=== PATIENT | male | born 1935 | race Caucasian/White ===

== ENCOUNTER 2016-11-29 17:03 | Emergency (ER) | payer MEDICARE, BC ==
[~2016-11-29] VITALS: Ht 188 cm; Wt 90.7 kg
[2016-11-29 17:07] VITALS: BP 150/93
== END 2016-11-29 18:56 | disposition home or self-care (01) ==
LOC: ER 17:03
DX: R06.6 Hiccough (principal); I10 Essential (primary) hypertension
CPT/HCPCS: 96372; 99283; A4606; J3230; Z7610

== ENCOUNTER 2023-02-07 09:46 | Inpatient (IN) | payer MEDICARE, BC ==
[~2023-02-07] VITALS: Ht 188 cm; Wt 98.0 kg
--- NOTE | 2023-02-07 10:40 | NUR ---
RECEIVED PT 87YRS MALE FROM HOME c/o nuasea and vomiting and DIZZNESS AWAKE FALLOW COMMAND
--- NOTE | 2023-02-07 11:19 | NUR ---
CALLED CODE STROKE
--- NOTE | 2023-02-07 11:23 | NUR ---
COMPUTER PROGRAMMER ANALYST AT BEDSIDE
--- NOTE | 2023-02-07 11:24 | NUR ---
PHARMACIST AT BEDSIDE
--- NOTE | 2023-02-07 11:24 | NUR ---
CALLED [facility] [phone] ALYCIA MAHAN.
--- NOTE | 2023-02-07 11:25 | NUR ---
TAKEN TO CT VIA ADRIANA
[2023-02-07] MEDS ORDERED: IOHEXOL-350 100 ML VIAL IV ONE (11:30)
[2023-02-07] MEDS ORDERED: CT SWABBABLE VALVE TRANS SET 1 EA INFUS.SET MC ONE (11:30)
[2023-02-07] MEDS ORDERED: IV NS 0.9% 1,000 ML BAG IV ONE (11:30)
[2023-02-07] MEDS ORDERED: ONDANSETRON HCL/PF 4 MG/2 ML VIAL IVP ONE (11:30)
[2023-02-07] MEDS ORDERED: IV NS 0.9% 250 ML IV ONE (11:30)
[2023-02-07] MEDS ORDERED: MECLIZINE HCL 12.5 MG TABLET PO ONE (11:30)
[2023-02-07] MEDS ORDERED: ONDANSETRON HCL/PF 4 MG/2 ML VIAL ONE (11:33)
[2023-02-07] MEDS ORDERED: MECLIZINE HCL 25 MG TABLET ONE (11:33)
[2023-02-07 11:35] LABS: BASOPHILS % (AUTO) 0.4 % (0.0-2.0); CALCIUM, SERUM 9.6 mg/dL (8.5-10.1); CARBON DIOXIDE 28 mmol/L (21-32); CHLORIDE 99 mmol/L (98-107); CREATININE 1.6 mg/dL (0.6-1.3); EOSINOPHILS % (AUTO) 0.2 % (0.0-6.0); GLUCOSE 204 mg/dL (74-106); HEMATOCRIT 49 % (39-51); HEMOGLOBIN 16.2 g/dL (13.5-17.5); LYMPHOCYTES # (AUTO) 0.8 K/uL (0.8-4.8); LYMPHOCYTES % (AUTO) 6.1 % (20.0-44.0); MEAN CORPUSCULAR HGB CONC 33 g/dl (31.0-36.0); MEAN CORPUSCULAR VOLUME 91 fL (80-96); MONOCYTES # (AUTO) 1.1 K/uL (0.1-1.30); MONOCYTES % (AUTO) 8.4 % (2.0-12.0); NEUTROPHILS # (AUTO) 11.6 K/uL (1.8-8.9); NEUTROPHILS % (AUTO) 84.9 % (43.0-81.0); PLATELET COUNT (AUTO) 201 K/uL (150-450); POTASSIUM 3.2 mmol/L (3.5-5.1); RED BLOOD CELL COUNT(AUTO) 5.44 MIL/uL (4.5-6.0); SODIUM SERUM 141 mmol/L (136-145); UREA NITROGEN, BLOOD 19 mg/dL (7-18); WHITE BLOOD COUNT (AUTO) 13.6 K/uL (4.3-11.0)
[2023-02-07 11:41] LABS: ALANINE AMINOTRANSFERASE 40 U/L (12-78); ALKALINE PHOSPHATASE 61 U/L (46-116); ASPARTATE AMINOTRANSFERASE 37 U/L (15-37); BILIRUBIN,DIRECT 0.3 mg/dL (0.0-0.2); BILIRUBIN,TOTAL 0.9 mg/dL (0.2-1.0); LIPASE 72 U/L (73-393); TOTAL PROTEIN, SERUM 7.9 g/dL (6.4-8.2)
--- NOTE | 2023-02-07 11:47 | NUR ---
COVID SWAB TAKEN SENT TO LAB
--- NOTE | 2023-02-07 11:55 | NUR ---
MOVE SHEET SUBMITTED.
[2023-02-07] MEDS ORDERED: hydrALAZINE HCL IV 20 MG VIAL IV ONE (12:30)
[2023-02-07] MEDS ORDERED: METO100T7 PO (12:44)
[2023-02-07] MEDS ORDERED: TORS20TA3 PO (12:44)
[2023-02-07] MEDS ORDERED: TADA5TAB2 PO (12:44)
[2023-02-07] MEDS ORDERED: ATOR40TA PO (12:44)
[2023-02-07] MEDS ORDERED: FENO145T PO (12:44)
[2023-02-07] MEDS ORDERED: TAMS-12 PO (12:44)
[2023-02-07] MEDS ORDERED: MELA5TAB PO (12:44)
[2023-02-07] MEDS ORDERED: LEVO100T9 PO (12:44)
[2023-02-07] MEDS ORDERED: ASPI-992 PO (12:44)
[2023-02-07] MEDS ORDERED: EZET10TA16 PO (12:44)
[2023-02-07] MEDS ORDERED: CHOL100043 PO (12:44)
[2023-02-07] MEDS ORDERED: RIBO100T6 PO (12:46)
--- NOTE | 2023-02-07 12:47 | NUR ---
BED 114-1
--- NOTE | 2023-02-07 12:50 | NUR ---
[facility] PAGED. AWAITING HOSPITALIST CALL BACK.
[2023-02-07] MEDS ORDERED: hydrALAZINE HCL IV 20 MG VIAL ONE (13:05)
--- NOTE | 2023-02-07 13:30 | NUR ---
HAND OFF DAMIER. Shannan KNOWLES TO ROOM 114-1 VIA CHRISTINE WITH REJI
--- NOTE | 2023-02-07 13:40 | NUR ---
RECEIVED PATIENT FROM ER. ALERT AND ORIENTED TIMES 4 BUT DIFFICULT TO DIRECT. ATTACHED TO TELE MONITOR. BREATHING EVENLY AND UNLABORED. PATIENT REQUESTED URINAL AND BED FUNES AND TO "BE LEFT ALONE" TO USE THE RESTROOM. SKIN INTACT. BED ZEROED, BED ALARM ON DUE TO PATIENT REPORT OF DIZZINESS. PATIENT REFUSING VITALS SIGNS CHECK AT THIS TIME. WILL MOVE WORKSTATION CLOSE TO PATIENTS ROOM TO ENSURE SAFETY.
--- NOTE | 2023-02-07 14:08 | NUR ---
CONDOM CATHETER ATTACHED.
--- NOTE | 2023-02-07 14:16 | NUR ---
PATIENT CONSENTED TO VITALS SIGNS CHECK. VITALS ARE FOLLOWS: TEMP-98.0 PULSE- 98 RR-20 O2%- 100 ON ROOM AIR BP 189/111 PAIN- Addendum: 02/07/23 at 1445 by ROBBI WAN RN DR HADLEY NOTIFIED OF BLOOD PRESSURE, AWAITING ORDERS.
[2023-02-07] MEDS: hydrALAZINE HCL IV 20 MG VIAL IV PRN ×2 (14:58→20:07)
[2023-02-07] MEDS ORDERED: CLONIDINE HCL 0.1 MG TABLET PO PRN (15:00)
[2023-02-07] MEDS ORDERED: POTASSIUM CHLORIDE 20 MEQ TAB.PRT.SR PO ONE (15:00)
--- NOTE | 2023-02-07 15:05 | NUR ---
RN NOTE BP 189/111, HR 98, PT ON TELE MONITOR. HYDRALAZINE IVP PRN GIVEN.
[2023-02-07] MEDS: IV NS 0.9% 250 ML IV PRN (15:50)
[2023-02-07] MEDS: POTASSIUM CL. PREMIX PERIPHER. 50 ML IV SCH ×2 (15:50→17:00)
[2023-02-07 16:00] VITALS: BP 139/70
[2023-02-07] MEDS ORDERED: ONDANSETRON HCL/PF 4 MG/2 ML VIAL IV PRN (16:00)
[2023-02-07] MEDS: ENOXAPARIN SODIUM 100 MG/ML DISP.SYRIN SQ SCH ×2 (16:00→17:01)
[2023-02-07 17:01] LABS: BASOPHILS % (AUTO) 0.1 % (0.0-2.0); HEMATOCRIT 52 % (39-51); HEMOGLOBIN 16.9 g/dL (13.5-17.5); LYMPHOCYTES # (AUTO) 0.4 K/uL (0.8-4.8); MEAN CORPUSCULAR HGB CONC 33 g/dl (31.0-36.0); MEAN CORPUSCULAR VOLUME 91 fL (80-96); MONOCYTES # (AUTO) 1.1 K/uL (0.1-1.30); MONOCYTES % (AUTO) 5.2 % (2.0-12.0); NEUTROPHILS # (AUTO) 20.1 K/uL (1.8-8.9); NEUTROPHILS % (AUTO) 92.7 % (43.0-81.0); PLATELET COUNT (AUTO) 206 K/uL (150-450); RED BLOOD CELL COUNT(AUTO) 5.71 MIL/uL (4.5-6.0); WHITE BLOOD COUNT (AUTO) 21.6 K/uL (4.3-11.0)
[2023-02-07] MEDS: BLOOD SUGAR DIAGNOSTIC 1 EACH STRIP IN SCH ×2 (17:01→22:08)
[2023-02-07] MEDS: TAMSULOSIN 0.4 MG CAP.SR.24H PO SCH (17:02)
--- NOTE | 2023-02-07 17:07 | NUR ---
LOVENOX HELD DUE TO HEMATURIA
[2023-02-07 17:16] LABS: CALCIUM, SERUM 9.5 mg/dL (8.5-10.1); CARBON DIOXIDE 27 mmol/L (21-32); CHLORIDE 100 mmol/L (98-107); CREATININE 1.5 mg/dL (0.6-1.3); GLUCOSE 174 mg/dL (74-106); POTASSIUM 3.2 mmol/L (3.5-5.1); SODIUM SERUM 142 mmol/L (136-145); UREA NITROGEN, BLOOD 18 mg/dL (7-18)
[2023-02-07 17:31] LABS: CHOLESTEROL 160 mg/dL (<200); HDL CHOLESTEROL 74 mg/dL (40-60); LDL 83 mg/dL (0-99); THYROID STIMULATING HORMONE 5.896 uIU/mL (0.358-3.74); TRIGLYCERIDES 62 mg/dL (30-150)
[2023-02-07 17:33] LABS: ALANINE AMINOTRANSFERASE 39 U/L (12-78); ALBUMIN 3.9 g/dL (3.4-5.0); ALKALINE PHOSPHATASE 61 U/L (46-116); ASPARTATE AMINOTRANSFERASE 39 U/L (15-37)
[2023-02-07 17:54] LABS: COLOR,URINE ORANGE (YELLOW)
[2023-02-07] MEDS ORDERED: BLOOD SUGAR DIAGNOSTIC 1 EACH STRIP IN SCH (18:00)
[2023-02-07 18:01] LABS: RBC,URINE TOO NUMEROUS TO COUN /HPF (0-2)
[2023-02-07 18:02] LABS: BACTERIA,URINE None seen /HPF (None Seen); SQUAMOUS EPITHELIAL CELL,UR 0-2 /HPF (None Seen); WBC,URINE 0-2 /HPF (0-3)
[2023-02-07 18:04] LABS: BAND % (MANUAL) 6 % (0.0-5.0); LYMPHOCYTES % (MANUAL) 4 % (16-48); MONOCYTES % (MANUAL) 4 % (0-11.0); NEUTROPHILS % (MANUAL) 86 (42-76)
--- NOTE | 2023-02-07 18:42 | NUR ---
PATIENT REMAINS IN ROOM ALERT AND ORIENTED TIMES 4 BUT DIFFICULT TO DIRECT. ATTACHED TO TELE MONITOR, READING A-FIB. BREATHING EVENLY AND UNLABORED ON ROOM AIR. WEARING DIAPER. NO MARTINEZ CATHETER STARTED DUE TO HEMATURIA. SKIN INTACT. BED ALARM ON DUE TO PATIENT REPORT OF DIZZINESS. PATIENTS AT THE BEDSIDE. SAFETY MEASURES IMPLEMENTED, WILL ENDORSE TO NIGHTSHIFT RN FOR CONTINUATION OF CARE.
--- NOTE | 2023-02-07 19:30 | NUR ---
RN NOTES RECEIVED REPORT FROM MORNING SHIFT. PATIENT IN BED AT BEDSIDE A/O X3. WITH IV ACCESS AT RAC # 20 PATENT FLUSHES WELL. ON ROOM AIR SATING 95% NO SOB NO DESATURATION NOTED BREATHING EVEN AND UNLABORED. ON MEDICAL ADMINISTRATIVE WITH AFIB UNCONTROLLED. WILL CLOSELY MONITOR THE PATIENT
[2023-02-07 20:00] VITALS: BP 129/78
--- NOTE | 2023-02-07 23:10 | NUR ---
RN NOTES PATIENT NOTED WITH AFIB UNCONTROLLED RHYTHM 130'S DR ZAMUDIO INFORMED AND CHECK PATIENT WITH ORDER TO GIVE METOPROLOL 5 MG IV X1. STARTED IV HYDRATION 09/29 @ 75CC/HR PER PT'S REQUEST.
[2023-02-07] MEDS ORDERED: METOPROLOL TARTRATE INJ 5 MG/5 ML AMPUL IVP PRN (23:30)
[2023-02-07] MEDS ORDERED: IV 1/2NS 1000 ML 1,000 ML IV PRN (23:30)
[2023-02-08] VITALS (10 sets, daily range): BP systolic 93–170; BP diastolic 66–85
[2023-02-08] MEDS: ENOXAPARIN SODIUM 100 MG/ML DISP.SYRIN SQ SCH (04:00)
--- NOTE | 2023-02-08 04:00 | NUR ---
RN NOTES LOVENOX HELD DUE TO BLOODY URINE OUTPUT.
[2023-02-08 06:01] LABS: BASOPHILS % (AUTO) 0.2 % (0.0-2.0); HEMATOCRIT 48 % (39-51); HEMOGLOBIN 15.9 g/dL (13.5-17.5); LYMPHOCYTES # (AUTO) 0.7 K/uL (0.8-4.8); LYMPHOCYTES % (AUTO) 3.9 % (20.0-44.0); MEAN CORPUSCULAR HGB CONC 33 g/dl (31.0-36.0); MEAN CORPUSCULAR VOLUME 89 fL (80-96); MONOCYTES # (AUTO) 1.3 K/uL (0.1-1.30); MONOCYTES % (AUTO) 7.6 % (2.0-12.0); NEUTROPHILS # (AUTO) 15.6 K/uL (1.8-8.9); NEUTROPHILS % (AUTO) 88.3 % (43.0-81.0); PLATELET COUNT (AUTO) 195 K/uL (150-450); WHITE BLOOD COUNT (AUTO) 17.7 K/uL (4.3-11.0)
[2023-02-08] MEDS: hydrALAZINE HCL IV 20 MG VIAL IV PRN ×2 (06:07→16:19)
[2023-02-08 06:23] LABS: CALCIUM, SERUM 9.1 mg/dL (8.5-10.1); CARBON DIOXIDE 23 mmol/L (21-32); CHLORIDE 102 mmol/L (98-107); CREATININE 1.7 mg/dL (0.6-1.3); GLUCOSE 162 mg/dL (74-106); POTASSIUM 3.3 mmol/L (3.5-5.1); SODIUM SERUM 140 mmol/L (136-145); UREA NITROGEN, BLOOD 23 mg/dL (7-18)
[2023-02-08 06:41] LABS: CHOLESTEROL 155 mg/dL (<200); HDL CHOLESTEROL 77 mg/dL (40-60); LDL 75 mg/dL (0-99); TRIGLYCERIDES 48 mg/dL (30-150)
--- NOTE | 2023-02-08 06:55 | NUR ---
RN NOTES PATIENT HAS AN EPISODE OF ELEVATED BLOOD PRESSURE. IV ACCESS AT R AC RUNNING 1/2 NS @ 75CC/HR. STILL WITH PINKISH URINE OUTPUT. PRN BP MEDS GIVEN. ALL DUE MEDS GIVEN. WILL ENDORSED TO MORNING SHIFT FOR JANETTE
--- NOTE | 2023-02-08 07:27 | NUR ---
TILTING HEAD BAND SAWYER OPENING NOTES RECEIVED PT RESTING IN BED, AT BEDSIDE. A/O X 4, ABLE TO MAKE NEEDS KNOWN. STILL C/O DIZZINESS. ON ROOM AIR, TOLERATING WELL. ON TELE MONITOR WITH CURRENT READING AFIB UNCONTROLLED. IV ACCESS IN RAC #18G, SL. SAFETY PRECAUTION IMPLEMENTED: BED LOCKED AND IN LOWEST POSITION, SIDE RAILS UP X 3, CALL LIGHT AND TRAY TABLE WITHIN EASY REACH. WILL CONTINUE TO MONITOR.
[2023-02-08] MEDS: LEVOTHYROXINE SODIUM 100 MCG TABLET PO SCH (07:36)
[2023-02-08] MEDS: BLOOD SUGAR DIAGNOSTIC 1 EACH STRIP IN SCH ×4 (08:17→22:11)
[2023-02-08] MEDS ORDERED: METOPROLOL SUCCINATE 50 MG TAB.SR.24H PO SCH (09:00)
[2023-02-08] MEDS: ATORVASTATIN 10 MG TABLET PO SCH (09:29)
[2023-02-08] MEDS: DILTIAZEM HCL CD 240 MG PO SCH (09:29)
[2023-02-08] MEDS: ASPIRIN 325 MG TABLET PO SCH (09:29)
[2023-02-08 09:40] LABS: THYROID STIMULATING HORMONE 6.144 uIU/mL (0.358-3.74)
[2023-02-08] MEDS: IV 1/2NS 1000 ML 1,000 ML IV SCH ×2 (09:54→23:08)
[2023-02-08] MEDS ORDERED: POTASSIUM CHLORIDE 10 MEQ TABLET.SA PO ONE (10:30)
[2023-02-08] MEDS: CLOPIDOGREL BISULFATE 75 MG TABLET PO SCH (12:27)
[2023-02-08] MEDS ORDERED: Z GUARD REMEDY 4 OZ OINT TP PRN (13:00)
--- NOTE | 2023-02-08 17:38 | NUR ---
telemarketing sales representative note per dr juan carlos waters to order Tylenol
[2023-02-08] MEDS: TAMSULOSIN 0.4 MG CAP.SR.24H PO SCH (17:48)
[2023-02-08] MEDS ORDERED: ACETAMINOPHEN 325 MG TABLET PO PRN (18:00)
--- NOTE | 2023-02-08 18:02 | NUR ---
telecom billing analyst note per dr rangel ok to transfer to icu for closer observation ,blood culture ordered by dr rangel ,order carried out
--- NOTE | 2023-02-08 18:20 | NUR ---
PT ARRIVED IN ICU TO ROOM 260. PT ALERT OX3, AT BEDSIDE. NO NEURO DEFICITS NOTED AT THIS TIME. BILAT ARMS AND LEGS EQUALLY STRONG, SPEECH CLEAR WITHOUT SLURRING, NO FACIAL DROOP NOTED. PT IS CHRONIC A-FIB, IRREGULAR RHYTHM WITH PACEMAKER AND "WATCHMAN" TYPE OF DEVICE PER . PT SETTLED IN ROOM. PT DENIES NEEDS AT THIS TIME.
--- NOTE | 2023-02-08 18:29 | NUR ---
LOCATION MAN NOTES PATIENT TRANSFERRED TO ICU AT 183 ACCOMPANIED BY . A/O X 4, ABLE TO MAKE NEEDS KNOWN. STILL C/O DIZZINESS. ON ROOM AIR, TOLERATING WELL. ON TELE MONITOR WITH CURRENT READING AFIB UNCONTROLLED. IV ACCESS IN RAC #18G, SL. SAFETY PRECAUTION IMPLEMENTED: BED LOCKED AND IN LOWEST POSITION,SIDE RAILS UP X 3, CALL LIGHT AND TRAY TABLE WITHIN EASY REACH. WILL CONTINUE TO MONITOR. Addendum: 02/08/23 at 1839 by Jessica Melendez RN ERROR, PLEASE DISREGARDS
--- NOTE | 2023-02-08 18:39 | NUR ---
STEAM CONDITIONER OPERATOR NOTES PATIENT TRANSFERRED TO ICU AT 1835 ACCOMPANIED BY AND RN. A/O X 4, ABLE TO MAKE NEEDS KNOWN. STILL C/O DIZZINESS. ON ROOM AIR, TOLERATING WELL. ON TELE MONITOR WITH CURRENT READING AFIB UNCONTROLLED. IV ACCESS IN RAC #18G WITH ONGOING 1/2 NS AT 75ML/HR, INFUSING WELL. NEEDS ATTENDED. ALL MEDS GIVEN. MD AND CHARGE NURSE AWARE OF TRANSFER.
[2023-02-08] MEDS ORDERED: VANCOMYCIN 1.5 GM in IV D5W 500ml IV ONE (19:00)
[2023-02-08] MEDS: CEFEPIME 2 GM in IV D5W 100 ML IV SCH (19:29)
--- NOTE | 2023-02-08 19:50 | NUR ---
DRIVER/GUIDE OPENING NOTES RECEIVED PATIENT IN BED, AWAKE, ALERT/ORIENTED X 4 AND VERBALLY RESPONSIVE. ABLE TO MAKE NEEDS. ON ROOM AIR AND PT TOLERATING WELL. TELE MONITOR READING AFIB UNCONTROLLED. IV ACCESS IN RAC #18G INTACT AND PATENT. NO S/S OF INFILTRATIONS. RUNNING 1/2 NS AT 75ML/HR. MAXIPIME GIVEN. NO C/O PAIN OR DISCOMFORT. NO ACUTE DISTRESS. INCONTINENT ON BOWEL AND BLADDER. ALL SAFETY MEASURES IN PLACE. BED IN LOWEST POSITION AND LOCKED. SIDE RAILS UP X 2, PLACE CALL LIGHT WITH IN REACH. WILL CONTINUE TO MONITOR
--- NOTE | 2023-02-08 22:57 | NUR ---
RN NOTES: NOTIFIED PRIVATE SECTOR EXECUTIVE LIZZ HEATH REGARDING PT'S BLOOD SUGAR 178. NO COVERAGE PRESCRIBED. ORDER TO MONITOR.
[2023-02-09] VITALS (24 sets, daily range): BP systolic 105–159; BP diastolic 61–94
[2023-02-09 05:08] LABS: BASOPHILS # (AUTO) 0.1 K/uL (0.0-0.2); BASOPHILS % (AUTO) 0.4 % (0.0-2.0); EOSINOPHILS % (AUTO) 0.1 % (0.0-6.0); HEMATOCRIT 48 % (39-51); HEMOGLOBIN 15.5 g/dL (13.5-17.5); LYMPHOCYTES # (AUTO) 0.6 K/uL (0.8-4.8); LYMPHOCYTES % (AUTO) 3.5 % (20.0-44.0); MEAN CORPUSCULAR HGB CONC 32 g/dl (31.0-36.0); MEAN CORPUSCULAR VOLUME 92 fL (80-96); MONOCYTES # (AUTO) 1.7 K/uL (0.1-1.30); MONOCYTES % (AUTO) 10.3 % (2.0-12.0); NEUTROPHILS # (AUTO) 14.4 K/uL (1.8-8.9); NEUTROPHILS % (AUTO) 85.7 % (43.0-81.0); PLATELET COUNT (AUTO) 184 K/uL (150-450); RED BLOOD CELL COUNT(AUTO) 5.18 MIL/uL (4.5-6.0); WHITE BLOOD COUNT (AUTO) 16.8 K/uL (4.3-11.0)
[2023-02-09 05:27] LABS: ALANINE AMINOTRANSFERASE 36 U/L (12-78); ALBUMIN 3.4 g/dL (3.4-5.0); ALKALINE PHOSPHATASE 53 U/L (46-116); ASPARTATE AMINOTRANSFERASE 40 U/L (15-37); BILIRUBIN,TOTAL 1.1 mg/dL (0.2-1.0); CARBON DIOXIDE 24 mmol/L (21-32); CHLORIDE 102 mmol/L (98-107); GLUCOSE 145 mg/dL (74-106); MAGNESIUM 2.1 mg/dL (1.8-2.4); PHOSPHORUS 3.2 mg/dL (2.5-4.9); POTASSIUM 3.4 mmol/L (3.5-5.1); SODIUM SERUM 139 mmol/L (136-145); TOTAL PROTEIN, SERUM 6.9 g/dL (6.4-8.2); UREA NITROGEN, BLOOD 34 mg/dL (7-18)
--- NOTE | 2023-02-09 06:27 | NUR ---
COOKIE MIXER HELPER CLOSING NOTES PATIENT IN BED, AWAKE, ALERT/ORIENTED X 4 AND VERBALLY RESPONSIVE. ABLE TO MAKE NEEDS KNOWN. AT BEDSIDE. ON ROOM AIR AND PT TOLERATING WELL. O2 SAT 98%. TELE MONITOR READING AFIB UNCONTROLLED. IV ACCESS IN RAC #18G INTACT AND PATENT. NO S/S OF INFILTRATIONS. RUNNING 1/2 NS AT 75ML/HR. NO C/O PAIN OR DISCOMFORT. NO ACUTE DISTRESS. INCONTINENT ON BOWEL AND BLADDER. CHANGED 3X. NOTED HEMATURIA. ALL DUE MEDS GIVEN ORDERED. ALL SAFETY MEASURES IN PLACE. BED IN LOWEST POSITION AND LOCKED. SIDE RAILS UP X 2, PLACE CALL LIGHT WITH IN REACH. WILL ENDORSE TO MORNING SHIFT NURSE.
--- NOTE | 2023-02-09 07:30 | NUR ---
ICU/RN PT IS RESTING .ON ROOM AIR SAT O2-96%.V/S STABLE,AFEBRILE .NO PAIN REPORTED AT THIS TIME.A-FIB ON MONITOR.HR-115 BPM.IV INFUSING ORDERED.PT HAS DIAPER WITH BLOODY URINE.ABDOMEN DISTENDED.LABS REVIEW.K-3.4. NOTIFIED.NEW ORDERS RECEIVED. AT BED SIDE.
[2023-02-09] MEDS: LEVOTHYROXINE SODIUM 100 MCG TABLET PO SCH (08:17)
[2023-02-09] MEDS: BLOOD SUGAR DIAGNOSTIC 1 EACH STRIP IN SCH ×4 (08:17→21:37)
[2023-02-09] MEDS: DILTIAZEM HCL CD 240 MG PO SCH (08:32)
[2023-02-09] MEDS: POTASSIUM CHLORIDE 20 MEQ TAB.PRT.SR PO SCH ×3 (08:32→11:21)
[2023-02-09] MEDS: ATORVASTATIN 10 MG TABLET PO SCH (08:32)
[2023-02-09] MEDS: ASPIRIN 325 MG TABLET PO SCH ×2 (08:33→09:00)
[2023-02-09] MEDS: CLOPIDOGREL BISULFATE 75 MG TABLET PO SCH ×2 (08:33→09:00)
[2023-02-09] MEDS: METOPROLOL SUCCINATE 50 MG TAB.SR.24H PO SCH (08:33)
--- NOTE | 2023-02-09 09:00 | NUR ---
ICU/RN DUE MEDS ARE GIVEN ORDERED.ASPIRIN AND PLAVIX HOLD.PT HAS BLOODY URINE.ULTRASOUND SHOWS 800 ML IN THE BLADDER.MD NOTIFIED.F/C INSERTED ORDERED. 900 ML OF BLOODY URINE OUTPUT. CONTINUE MONITORING.
[2023-02-09] MEDS: IV 1/2NS 1000 ML 1,000 ML IV PRN (10:16)
--- NOTE | 2023-02-09 12:45 | NUR ---
ICU/RN CT OF THE HEAD DONE ORDERED.
[2023-02-09] MEDS: VANCOMYCIN 0.75 GM in IV D5W 250 ML IV SCH (12:49)
[2023-02-09] MEDS: TAMSULOSIN 0.4 MG CAP.SR.24H PO SCH (17:09)
[2023-02-09] MEDS: CEFEPIME 2 GM in IV D5W 100 ML IV SCH (18:09)
--- NOTE | 2023-02-09 18:46 | NUR ---
ICU/RN PM CARE PROVIDED.DUE MEDS ARE GIVEN ORDERED.V/S STABLE,AFEBRILE.NO PAIN REPORTED AT THIS TIME.PT STILL HAVE BLOODY URINE WITH BLOOD CLOTH.MD AWARE WAITING FOR UROLOGIST. AT BEDSIDE.CONTINUE MONITORING.
[2023-02-09] MEDS ORDERED: VANCOMYCIN 1.25 GM in IV D5W 250 ML IV SCH (19:00)
--- NOTE | 2023-02-09 19:30 | NUR ---
DEBURRING MACHINE OPERATOR OPENING NOTE RECEIVED PT IN BED, SLEEPING. ON BED SIDE. CURRENTLY ON ROOM AIR, TOLERATING WELL, SATING @ 97%. NO S/SX OF ACUTE RESPI DISTRESS NOTED AT THIS TIME. NO SOB. BREATHING IS EVEN AND UNLABORED. HOME DEPOT REP READS AFIB CONTROLLED WITH HR IN 80s. IV ACCESS ON RAC #18g, PATENT, INTACT AND FLUSHING WELL, INFUSING 1/2 NS @ 75 CC/HR. F/C DRAINING BLOODY URINE BY GRAVITY, MD AWARE. ALL SAFETY MEASURES IN PLACE: BED LOCKED IN LOW POSITION. BED ALARM ON. SR UP X2. CALL LIGHT WITHIN REACH. WILL CONTINUE TO MONITOR PT.
--- NOTE | 2023-02-09 23:25 | NUR ---
RN NOTE JOHN PAUL MIDLINE INSERTION DONE BY JOHN ZAMUDIO.
[2023-02-10] VITALS (21 sets, daily range): BP systolic 107–160; BP diastolic 11–100
[2023-02-10] MEDS: IV 1/2NS 1000 ML 1,000 ML IV PRN (01:22)
--- NOTE | 2023-02-10 01:30 | NUR ---
RN NOTE RAC ACCESS REMOVED DUE TO INFILTRATION.
[2023-02-10 04:55] LABS: BASOPHILS % (AUTO) 0.2 % (0.0-2.0); EOSINOPHILS % (AUTO) 0.3 % (0.0-6.0); HEMATOCRIT 43 % (39-51); LYMPHOCYTES # (AUTO) 0.8 K/uL (0.8-4.8); LYMPHOCYTES % (AUTO) 5.1 % (20.0-44.0); MEAN CORPUSCULAR HGB CONC 33 g/dl (31.0-36.0); MEAN CORPUSCULAR VOLUME 91 fL (80-96); MONOCYTES # (AUTO) 1.6 K/uL (0.1-1.30); MONOCYTES % (AUTO) 10.4 % (2.0-12.0); PLATELET COUNT (AUTO) 184 K/uL (150-450); RED BLOOD CELL COUNT(AUTO) 4.71 MIL/uL (4.5-6.0); WHITE BLOOD COUNT (AUTO) 15.5 K/uL (4.3-11.0)
[2023-02-10 05:12] LABS: ALANINE AMINOTRANSFERASE 39 U/L (12-78); ALBUMIN 2.9 g/dL (3.4-5.0); ALKALINE PHOSPHATASE 54 U/L (46-116); ASPARTATE AMINOTRANSFERASE 46 U/L (15-37); BILIRUBIN,TOTAL 1.2 mg/dL (0.2-1.0); CALCIUM, SERUM 8.8 mg/dL (8.5-10.1); CARBON DIOXIDE 26 mmol/L (21-32); CHLORIDE 104 mmol/L (98-107); CREATININE 1.3 mg/dL (0.6-1.3); GLUCOSE 138 mg/dL (74-106); MAGNESIUM 2.1 mg/dL (1.8-2.4); PHOSPHORUS 2.4 mg/dL (2.5-4.9); POTASSIUM 3.9 mmol/L (3.5-5.1); SODIUM SERUM 137 mmol/L (136-145); TOTAL PROTEIN, SERUM 6.2 g/dL (6.4-8.2); UREA NITROGEN, BLOOD 25 mg/dL (7-18)
--- NOTE | 2023-02-10 05:27 | NUR ---
RN NOTE RECEIVED CRITICAL LAB RESULT OF TROPONIN - 1968. AIR EXPORT LOGISTICS MANAGER IVANA ZAMUDIO MADE AWARE. NO ADDITIONAL ORDERS GIVEN AT THIS TIME.
[2023-02-10] MEDS: VANCOMYCIN 0.75 GM in IV D5W 250 ML IV SCH ×2 (06:04→18:41)
--- NOTE | 2023-02-10 07:00 | NUR ---
LAVENDER FARM WORKER CLOSING NOTE PT REMAINED STABLE T/O THE NIGHT. VS STABLE. ALL DUE MEDS GIVEN. NEEDS MET. PM CARE DONE. TURNED AND REPOSITIONED. WILL ENDORSE TO AM SHIFT NURSE FOR JANETTE.
--- NOTE | 2023-02-10 07:00 | NUR ---
RECEIVED REPORT FROM NIGHTSALFT ELENI REYES. PATIENT REMAINS IN ROOM ALERT AND ORIENTED TIMES 4, AND CRANKY. A-FIB CONTROLLED ON THE MONITOR. MARTINEZ CATHETER IN PLACE, DRAINING OUTPUT. SKIN INTACT. IV ACCESS MAINTAINED ON RIGHT UPPER ARM MIDLINE, INFUSING FLUIDS ORDERED. SAFETY MEASURES IMPLEMENTED, PATIENTS IS AT THE BEDSIDE. WILL CONTINUE PLAN OF CARE AND ANTICIPATE NEEDS.
[2023-02-10] MEDS: hydrALAZINE HCL IV 20 MG VIAL IV PRN (07:05)
[2023-02-10] MEDS: BLOOD SUGAR DIAGNOSTIC 1 EACH STRIP IN SCH ×4 (07:33→21:34)
[2023-02-10] MEDS: LEVOTHYROXINE SODIUM 100 MCG TABLET PO SCH (08:17)
[2023-02-10] MEDS: METOPROLOL SUCCINATE 50 MG TAB.SR.24H PO SCH (08:18)
[2023-02-10] MEDS: DILTIAZEM HCL CD 240 MG PO SCH (08:18)
[2023-02-10] MEDS: ASPIRIN 325 MG TABLET PO SCH (08:18)
[2023-02-10] MEDS: ATORVASTATIN 10 MG TABLET PO SCH (08:19)
[2023-02-10] MEDS: CLOPIDOGREL BISULFATE 75 MG TABLET PO SCH (08:19)
[2023-02-10] MEDS ORDERED: K PHOS NEUTRAL 250 MG TABLET PO ONE (16:00)
[2023-02-10] MEDS: TAMSULOSIN 0.4 MG CAP.SR.24H PO SCH (17:17)
[2023-02-10] MEDS: CEFEPIME 2 GM in IV D5W 100 ML IV SCH (18:11)
[2023-02-10] MEDS: IV NS 0.9% 250 ML IV PRN (18:41)
--- NOTE | 2023-02-10 19:19 | NUR ---
HAND OFF REPORT GIVEN TO JHOAN FOR CONTINUATION OF CARE.
--- NOTE | 2023-02-10 20:00 | NUR ---
Received patient resting AAOX4.Neuro status stable.VS stable.Afib controlled.On RA saturation wnl. FC to gravity.Denies any discomfort. at bedside.Patient for transfer to higher level of care.
[2023-02-11] VITALS (22 sets, daily range): BP systolic 127–163; BP diastolic 63–100
--- NOTE | 2023-02-11 00:05 | NUR ---
Received call from [facility],talked to Jovany.Updated of patient status.credit office manager Chris is following up with patient case. Per Jovany its still under review.
--- NOTE | 2023-02-11 01:10 | NUR ---
Received call form Annalyn at [facility].Per Annalyn they need to know the Specific Watchman device and the belly packer.and to call them when available tel# [phone].
[2023-02-11 05:42] LABS: BASOPHILS # (AUTO) 0.1 K/uL (0.0-0.2); BASOPHILS % (AUTO) 0.4 % (0.0-2.0); EOSINOPHILS % (AUTO) 1.1 % (0.0-6.0); HEMATOCRIT 44 % (39-51); HEMOGLOBIN 14.5 g/dL (13.5-17.5); MEAN CORPUSCULAR HGB CONC 33 g/dl (31.0-36.0); MEAN CORPUSCULAR VOLUME 91 fL (80-96); MONOCYTES # (AUTO) 1.6 K/uL (0.1-1.30); MONOCYTES % (AUTO) 11.3 % (2.0-12.0); NEUTROPHILS # (AUTO) 11.2 K/uL (1.8-8.9); NEUTROPHILS % (AUTO) 80.2 % (43.0-81.0); PLATELET COUNT (AUTO) 187 K/uL (150-450); RED BLOOD CELL COUNT(AUTO) 4.87 MIL/uL (4.5-6.0)
[2023-02-11 05:48] LABS: ALANINE AMINOTRANSFERASE 40 U/L (12-78); ALBUMIN 2.8 g/dL (3.4-5.0); ALKALINE PHOSPHATASE 55 U/L (46-116); ASPARTATE AMINOTRANSFERASE 39 U/L (15-37); BILIRUBIN,TOTAL 1.3 mg/dL (0.2-1.0); CARBON DIOXIDE 27 mmol/L (21-32); CHLORIDE 105 mmol/L (98-107); CREATININE 1.2 mg/dL (0.6-1.3); GLUCOSE 135 mg/dL (74-106); MAGNESIUM 2.2 mg/dL (1.8-2.4); PHOSPHORUS 2.5 mg/dL (2.5-4.9); POTASSIUM 3.7 mmol/L (3.5-5.1); SODIUM SERUM 136 mmol/L (136-145); TOTAL PROTEIN, SERUM 6.2 g/dL (6.4-8.2); UREA NITROGEN, BLOOD 22 mg/dL (7-18)
[2023-02-11] MEDS: VANCOMYCIN 0.75 GM in IV D5W 250 ML IV SCH ×2 (06:27→20:21)
--- NOTE | 2023-02-11 07:06 | NUR ---
STUDENT SERVICES REPRESENTATIVE OPENING NOTE: RECEIVED PT IN BED. AOX4. ABLE TO MAKE NEEDS KNOWN. AT BEDSIDE. HOB KEPT ELEVATED. NO RESP DISTRESS NOTED. JOHN PAUL ML INTACT AND PATENT. AFIB CONTROLLED HR 65. CALL LIGHT WITHIN REACH. BED KEPT LOW AND LOCK FOR SAFETY.
[2023-02-11] MEDS: LEVOTHYROXINE SODIUM 100 MCG TABLET PO SCH (08:03)
[2023-02-11] MEDS: ATORVASTATIN 10 MG TABLET PO SCH (08:03)
[2023-02-11] MEDS: ASPIRIN 325 MG TABLET PO SCH (08:03)
[2023-02-11] MEDS: METOPROLOL SUCCINATE 50 MG TAB.SR.24H PO SCH (08:05)
[2023-02-11] MEDS: DILTIAZEM HCL CD 240 MG PO SCH (08:06)
[2023-02-11] MEDS: BLOOD SUGAR DIAGNOSTIC 1 EACH STRIP IN SCH ×4 (08:07→22:23)
[2023-02-11] MEDS: CLOPIDOGREL BISULFATE 75 MG TABLET PO SCH (08:11)
[2023-02-11] MEDS ORDERED: IOHEXOL-350 100 ML VIAL IV ONE (14:38)
[2023-02-11] MEDS ORDERED: IV NS 0.9% 250 ML IV ONE (14:38)
[2023-02-11] MEDS ORDERED: NITROGLYCERIN 0.4 MG/TAB BOTTLE ONE (14:43)
[2023-02-11] MEDS ORDERED: NITROGLYCERIN 0.4 MG/TAB BOTTLE SL ONE (15:00)
[2023-02-11] MEDS ORDERED: METOPROLOL TARTRATE INJ 5 MG/5 ML AMPUL IVP PRN (15:00)
[2023-02-11] MEDS: TAMSULOSIN 0.4 MG CAP.SR.24H PO SCH (17:47)
--- NOTE | 2023-02-11 19:24 | NUR ---
RN CLOSING NOTE: PT IN BED. AOX 3. NO S/S OF PAIN OR DISCOMFORT. ABLE TO MAKE NEEDS KNOWN. AT BEDSIDE. CALM AND STABLE. ENDORSE TO NEXT SHIFT FOR CONTINUATION OF CARE.
[2023-02-11] MEDS: CEFEPIME 2 GM in IV D5W 100 ML IV SCH (19:50)
--- NOTE | 2023-02-11 20:00 | NUR ---
Received patient resting in bed alert and oriented X4, VS stable, AFib controlled. Hemodynamically stable. Patient denies any discomfort.Independent with bed mobility and assisting with ADL. NS TKO infusing to JOHN PAUL ML,. Site intact. Burt catheter to gravity. Plan of care implemented. Safety precaution maintained. Call light at bedside. at bedside. Continue to monitor.
--- NOTE | 2023-02-11 21:32 | NUR ---
Patient resting in no acute distress.VSS.Afib 119-to low 100's.Due medications administered. HD x2 hrs well tolerated.2.1L out.Denies any discomfort.Turned and repositioned.Plan of care reinforced.Safety precaution maintained.Continue to monitor. Addendum: 02/11/23 at 2239 by JHOAN NG RN PLEASE DISREGARD ABOVE NOTES.WRONG ENTRY
--- NOTE | 2023-02-11 23:05 | NUR ---
Received call from [facility].Talked to Carol wants update on patient status. Patient resting in no acute distress.VSS.Afib controlled.Hemodynamically stable.Denies any discomfort. at bedside..Per Carol no bed available at this time.
[2023-02-12] VITALS (22 sets, daily range): BP systolic 132–180; BP diastolic 69–107
[2023-02-12] MEDS: IV NS 0.9% 250 ML IV PRN (01:22)
--- NOTE | 2023-02-12 06:30 | NUR ---
Patient awake, VS remains stable. Bedbath rendered, complete linen changed. Vebalized comfort, mouth care done by patient. Denies pain or any discomfort. Still waiting for [facility] transfer. Will endorse to day shift for continuity of care. Safety precaution maintained. Call light at bedside.
[2023-02-12 06:51] LABS: CALCIUM, SERUM 8.9 mg/dL (8.5-10.1); CREATININE 1.2 mg/dL (0.6-1.3); POTASSIUM 3.5 mmol/L (3.5-5.1)
[2023-02-12] MEDS: VANCOMYCIN 0.75 GM in IV D5W 250 ML IV SCH ×2 (07:44→18:32)
[2023-02-12] MEDS: BLOOD SUGAR DIAGNOSTIC 1 EACH STRIP IN SCH ×4 (07:44→22:31)
[2023-02-12] MEDS: ATORVASTATIN 10 MG TABLET PO SCH (08:14)
[2023-02-12] MEDS: LEVOTHYROXINE SODIUM 100 MCG TABLET PO SCH (08:14)
[2023-02-12] MEDS: ASPIRIN 325 MG TABLET PO SCH (08:14)
[2023-02-12] MEDS: CLOPIDOGREL BISULFATE 75 MG TABLET PO SCH (08:14)
[2023-02-12] MEDS: METOPROLOL SUCCINATE 50 MG TAB.SR.24H PO SCH (08:14)
[2023-02-12] MEDS: DILTIAZEM HCL CD 240 MG PO SCH (08:15)
[2023-02-12] MEDS ORDERED: ENOXAPARIN SODIUM 40 MG/0.4 ML DISP.SYRIN SQ SCH (09:00)
--- NOTE | 2023-02-12 11:31 | NUR ---
ICU/RN PT SITTING IN CHAIR, AMBULATED BY PHYSICAL THERAPIST. PER PHYSICAL THERAPIST, PT NEEDS 2 PERSON ASSIST WITH USE OF WALKER, PT IS WEAKER ON LEFT SIDE COMPARED TO RIGHT SIDE. PT WAS ABLE TO AMBULATE IN THE ROOM AND TO SIT ON CHAIR. PHYSICAL THERAPIST WILL BE BACK AROUND 1330 TO HELP PT BACK IN BED.
[2023-02-12] MEDS: TAMSULOSIN 0.4 MG CAP.SR.24H PO SCH (17:19)
[2023-02-12] MEDS: CEFEPIME 2 GM in IV D5W 100 ML IV SCH (18:01)
[2023-02-13] VITALS: BP 140/68
[2023-02-13 00:13] VITALS: BP 140/62
--- NOTE | 2023-02-13 00:35 | NUR ---
Transferred patient to [facility] Rm [id number] via [facility] at 0035. Report given to ELENI Summers at [facility]. Vital signs stable, alert awake, oriented X4 and follows commands. Report also given to the ambulance staff.
== END 2023-02-13 02:32 | disposition short-term general hospital (02) | DRG 64 ==
LOC: ER 09:57 → TELE1 13:14 → ICU 02-08 18:09
PROVIDERS: ADMIT Internal Medicine; ATTEND Nurse Practitioner Acute Care
PROC: 05HB33Z Insertion of Infusion Device into Right Basilic Vein, Percutaneous Approach (ICD-10-PCS; principal; 2023-02-09)
DX: I63.449 Cerebral infarction due to embolism of unspecified cerebellar artery (principal); I21.A1 Myocardial infarction type 2; N17.0 Acute kidney failure with tubular necrosis; I13.0 Hypertensive heart and chronic kidney disease with heart failure and stage 1 through stage 4 chronic kidney disease, or unspecified chronic kidney disease; D68.59 Other primary thrombophilia; I82.412 Acute embolism and thrombosis of left femoral vein; N39.0 Urinary tract infection, site not specified; N18.9 Chronic kidney disease, unspecified; R29.704 NIHSS score 4; Z20.822 Contact with and (suspected) exposure to COVID-19; I34.1 Nonrheumatic mitral (valve) prolapse; I48.91 Unspecified atrial fibrillation; I25.118 Atherosclerotic heart disease of native coronary artery with other forms of angina pectoris; I25.2 Old myocardial infarction; I50.9 Heart failure, unspecified; Z95.2 Presence of prosthetic heart valve; Z95.0 Presence of cardiac pacemaker; Z79.82 Long term (current) use of aspirin; Z79.899 Other long term (current) drug therapy; E78.5 Hyperlipidemia, unspecified; E03.9 Hypothyroidism, unspecified; E87.6 Hypokalemia; E88.09 Other disorders of plasma-protein metabolism, not elsewhere classified; H55.00 Unspecified nystagmus; R31.0 Gross hematuria; N28.1 Cyst of kidney, acquired; J32.2 Chronic ethmoidal sinusitis; Z95.818 Presence of other cardiac implants and grafts; N32.9 Bladder disorder, unspecified; N40.1 Benign prostatic hyperplasia with lower urinary tract symptoms; R33.8 Other retention of urine; T45.515A Adverse effect of anticoagulants, initial encounter; Y92.009 Unspecified place in unspecified non-institutional (private) residence as the place of occurrence of the external cause
CPT/HCPCS: 36410; 36415; 70450-TC; 70496-TC; 70498-TC; 71045-TC; 74018; 75574; 76770-TC; 80048-TC; 80053-TC; 80061-TC; 80076-TC; 80202-TC; 81001; 82962-TC; 83690-TC; 83735-TC; 83880; 84100-TC; 84439-TC; 84443-TC; 84484-TC; 85025-TC; 85652-TC; 85730-TC; 87040-TC; 87081-TC; 87086-TC; 92507-TC; 92521; 92526; 92611-TC; 93307-TC; 93970-TC; 97116-TC; 97530-TC; A4223; A4349; C9803; G0378; J0360; J0692; J1650; J2405; J3370; J3480; J3490; J7030; J7050; J7060; J8597; Q9967